=== PATIENT | male | born 1985 | race Caucasian/White ===

== ENCOUNTER 2016-10-20 17:44 | Emergency (ER) | payer MEDICAID ==
[~2016-10-20 17:44] MED LIST: FOL1 PO; KLO0.5 PO; LEXAPRO10 MG PO; PRI20 PO; PROZ20 PO; THI100 PO; XANAX0.5 MG PO
[2016-10-20 19:08] VITALS: BP 122/76
== END 2016-10-20 19:00 | disposition home or self-care (01) ==
LOC: ED 17:44
DX: F32.9 Major depressive disorder, single episode, unspecified (principal); T43.025A Adverse effect of tetracyclic antidepressants, initial encounter; F41.9 Anxiety disorder, unspecified; Y92.89 Other specified places as the place of occurrence of the external cause

== ENCOUNTER 2016-12-18 11:57 | Emergency (ER) | payer MEDICAID | END 2016-12-18 12:28 | disposition left against medical advice (07) | LOC: ED 11:57 | DX: Z53.21 Procedure and treatment not carried out due to patient leaving prior to being seen by health care provider (principal) ==

== ENCOUNTER 2017-08-06 09:54 | Emergency (ER) | payer MEDICAID ==
[~2017-08-06] VITALS: Ht 170.2 cm; Wt 67.6 kg
[2017-08-06 09:54] VITALS: BP 119/91; Ht 170.2 cm; Wt 67.6 kg
== END 2017-08-06 12:27 | disposition left against medical advice (07) ==
LOC: ED 09:54
DX: Z53.21 Procedure and treatment not carried out due to patient leaving prior to being seen by health care provider (principal)

== ENCOUNTER 2017-08-07 15:30 | Emergency (ER) | payer MEDICAID ==
[2017-08-07 17:14] VITALS: BP 122/71
== END 2017-08-07 17:14 | disposition home or self-care (01) ==
LOC: ED 15:30
DX: J11.1 Influenza due to unidentified influenza virus with other respiratory manifestations (principal); J45.901 Unspecified asthma with (acute) exacerbation

== ENCOUNTER 2018-10-05 11:24 | Emergency (ER) | payer OTHER, MEDICAID ==
[~2018-10-05] VITALS: Ht 170.2 cm; Wt 67.8 kg
[2018-10-05 11:45] VITALS: BP 127/76; Ht 170.2 cm; Wt 67.8 kg
[2018-10-07 20:42] LABS: RAPID PLASMA REAGIN Non Reactive (Non Reactive)
== END 2018-10-05 12:49 | disposition home or self-care (01) ==
LOC: ED 11:24
PROVIDERS: Emergency Medicine
DX: R21 Rash and other nonspecific skin eruption (principal); R13.10 Dysphagia, unspecified; F41.9 Anxiety disorder, unspecified; J45.909 Unspecified asthma, uncomplicated; Z88.5 Allergy status to narcotic agent

== ENCOUNTER 2019-08-23 13:02 | Emergency (ER) | payer OTHER, MEDICAID ==
[~2019-08-23] VITALS: Ht 170.2 cm; Wt 70.8 kg
[2019-08-23 13:11] VITALS: Ht 170.2 cm; Wt 70.8 kg
[2019-08-23 14:00] LABS: BASOPHIL % 0.3 % (0-2); PLATELET COUNT 261 x10^3mcL (130-400); RED CELL DISTRIBUTION WIDTH 15.3 % (11.5-14.5)
[2019-08-23 14:17] LABS: AMPHETAMINE QUAL UR POSITIVE (See below)
[2019-08-23 14:25] LABS: ALBUMIN 3.1 g/dL (3.4-5.0); CARBON DIOXIDE 25.7 mmol/L (21-32); CHLORIDE SERUM 105 mmol/L (98-107); CREATININE SERUM 1.2 mg/dL (0.7-1.3); GFR1 > 60 mL/min; GLUCOSE SERUM 93 mg/dL (74-106); POTASSIUM SERUM 4.1 mmol/L (3.5-5.1); SODIUM SERUM 140 mmol/L (136-145); TOTAL PROTEIN, SERUM 7.4 g/dL (6.4-8.2)
[2019-08-23 14:26] LABS: ALKALINE PHOSPHATASE 61 U/L (46-116); ALT/SGPT 60 U/L (16-63); AST/SGOT 54 U/L (15-37); BILIRUBIN TOTAL 0.2 mg/dL (0.20-1.00); CALCIUM 8.6 mg/dL (8.5-10.1)
[2019-08-23 14:33] LABS: FREE THYROXINE INDEX 1.8 ug/dL (1.4-4.5); T4(THYROXINE) 5.7 ug/dL (4.7-13.3)
[2019-08-23 15:19] LABS: T3 TOTAL 1.32 ng/mL
[2019-08-23 15:39] VITALS: BP 124/75
== END 2019-08-23 15:39 | disposition home or self-care (01) ==
LOC: ED 13:02
PROVIDERS: Emergency Medicine
DX: E86.0 Dehydration (principal); R00.2 Palpitations; T38.7X5A Adverse effect of androgens and anabolic congeners, initial encounter; Y92.89 Other specified places as the place of occurrence of the external cause
CPT/HCPCS: 84439; J7030; Q0092

== ENCOUNTER 2019-09-23 23:41 | Emergency (ER) | payer OTHER ==
[~2019-09-23] VITALS: Ht 172.7 cm; Wt 72.1 kg
[2019-09-23 23:56] VITALS: Ht 172.7 cm; Wt 72.1 kg
[2019-09-24 00:55] LABS: BASOPHIL % 0.2 % (0-2); PLATELET COUNT 269 x10^3mcL (130-400); RED CELL DISTRIBUTION WIDTH 14.9 % (11.5-14.5)
[2019-09-24 01:01] LABS: CARBON DIOXIDE 26.9 mmol/L (21-32); CHLORIDE SERUM 102 mmol/L (98-107); CREATININE SERUM 1.4 mg/dL (0.7-1.3); GFR1 > 60 mL/min; GLUCOSE SERUM 121 mg/dL (74-106); SODIUM SERUM 138 mmol/L (136-145)
[2019-09-24 01:07] LABS: ALKALINE PHOSPHATASE 50 U/L (46-116); ALT/SGPT 35 U/L (16-63); AST/SGOT 32 U/L (15-37); BILIRUBIN TOTAL 0.3 mg/dL (0.20-1.00); LIPASE 74 IU/L (73-393); TOTAL PROTEIN, SERUM 7.5 g/dL (6.4-8.2)
[2019-09-24 01:21] LABS: ALBUMIN 2.6 g/dL (3.4-5.0)
[2019-09-24 04:01] LABS: UA SPECIFIC GRAVITY 1.025 (1.005-1.035); microscopic required? YES; urine erythrocyte NEGATIVE (NEGATIVE)
[2019-09-24 04:20] LABS: AMPHETAMINE QUAL UR POSITIVE (See below)
[2019-09-24 04:55] VITALS: BP 101/50
== END 2019-09-24 04:55 | disposition home or self-care (01) ==
LOC: ED 23:41
PROVIDERS: Emergency Medicine
DX: R11.10 Vomiting, unspecified (principal); R19.7 Diarrhea, unspecified; R50.9 Fever, unspecified; J45.909 Unspecified asthma, uncomplicated; Z88.5 Allergy status to narcotic agent
CPT/HCPCS: 87804; G0480; J1885; J2405; J7030; Q0092; Q0162

== ENCOUNTER 2019-10-01 22:59 | Emergency (ER) | payer OTHER ==
[~2019-10-01] VITALS: Ht 170.2 cm; Wt 70.3 kg
[2019-10-01 23:14] VITALS: Ht 170.2 cm; Wt 70.3 kg
[2019-10-02 00:07] LABS: BASOPHIL % 0 % (0-2); PLATELET COUNT 472 x10^3mcL (130-400); RED CELL DISTRIBUTION WIDTH 15.3 % (11.5-14.5)
[2019-10-02 00:30] LABS: CALCIUM 8.6 mg/dL (8.5-10.1); CARBON DIOXIDE 28.3 mmol/L (21-32); CHLORIDE SERUM 103 mmol/L (98-107); CREATININE SERUM 1.3 mg/dL (0.7-1.3); GFR1 > 60 mL/min; GLUCOSE SERUM 127 mg/dL (74-106); POTASSIUM SERUM 4.5 mmol/L (3.5-5.1); SODIUM SERUM 138 mmol/L (136-145)
[2019-10-02 00:36] LABS: ALBUMIN 2.5 g/dL (3.4-5.0); ALKALINE PHOSPHATASE 62 U/L (46-116); ALT/SGPT 56 U/L (16-63); AMYLASE 29 U/L (25-115); AST/SGOT 24 U/L (15-37); BILIRUBIN TOTAL 0.3 mg/dL (0.20-1.00); LIPASE 117 IU/L (73-393); TOTAL PROTEIN, SERUM 8.1 g/dL (6.4-8.2)
[2019-10-02 04:07] VITALS: BP 122/64
== END 2019-10-02 04:07 | disposition home or self-care (01) ==
LOC: ED 22:59
PROVIDERS: Emergency Medicine
DX: R10.32 Left lower quadrant pain (principal); R11.0 Nausea; R19.7 Diarrhea, unspecified; J45.909 Unspecified asthma, uncomplicated; Z88.5 Allergy status to narcotic agent
CPT/HCPCS: 36415; J1885

== ENCOUNTER 2020-09-28 17:42 | Emergency (ER) | payer OTHER ==
[~2020-09-28] VITALS: Ht 170.2 cm; Wt 74.8 kg
[2020-09-28 17:51] VITALS: Ht 170.2 cm; Wt 74.8 kg
[2020-09-28 21:31] LABS: BASOPHIL % 0.7 % (0.2-1.5); PLATELET COUNT 323 x10^3mcL (152-348)
[2020-09-28 21:33] LABS: RED CELL DISTRIBUTION WIDTH 14.9 % (12.1-16.2)
[2020-09-28 21:41] LABS: CALCIUM 8.7 mg/dL (8.5-10.1); CHLORIDE SERUM 106 mmol/L (98-107); CREATININE SERUM 1.4 mg/dL (0.7-1.3); GFR1 > 60 mL/min; GLUCOSE SERUM 119 mg/dL (74-106); POTASSIUM SERUM 3.9 mmol/L (3.5-5.1); SODIUM SERUM 140 mmol/L (136-145)
[2020-09-28 21:45] LABS: ALKALINE PHOSPHATASE 71 U/L (46-116); ALT/SGPT 57 U/L (16-63); AST/SGOT 35 U/L (15-37); BILIRUBIN TOTAL 0.3 mg/dL (0.20-1.00); TOTAL PROTEIN, SERUM 6.8 g/dL (6.4-8.2)
[2020-09-28 21:46] LABS: ALBUMIN 3.3 g/dL (3.4-5.0)
[2020-09-28 21:56] LABS: microscopic required? YES; urine erythrocyte TRACE (NEGATIVE)
[2020-09-28 22:12] LABS: AMPHETAMINE QUAL UR POSITIVE (See below)
[2020-09-29 00:52] VITALS: BP 118/72
== END 2020-09-29 00:52 | disposition home or self-care (01) ==
LOC: ED 17:42
PROVIDERS: Emergency Medicine
DX: R00.2 Palpitations (principal); R06.02 Shortness of breath; R00.0 Tachycardia, unspecified; F15.10 Other stimulant abuse, uncomplicated; Z88.8 Allergy status to other drugs, medicaments and biological substances
CPT/HCPCS: J2060; J7030

== ENCOUNTER 2020-10-08 14:07 | Inpatient (IN) | payer OTHER ==
[~2020-10-08] VITALS: Ht 170.2 cm; Wt 85.8 kg
[2020-10-08 14:49] LABS: BASOPHIL % 0.4 % (0.2-1.5); PLATELET COUNT 294 x10^3mcL (152-348)
[2020-10-08 14:54] LABS: RED CELL DISTRIBUTION WIDTH 15.1 % (12.1-16.2)
[2020-10-08 14:56] LABS: CALCIUM 9.1 mg/dL (8.5-10.1); CHLORIDE SERUM 104 mmol/L (98-107); CREATININE SERUM 1.4 mg/dL (0.7-1.3); GFR1 > 60 mL/min; GLUCOSE SERUM 108 mg/dL (74-106); SODIUM SERUM 137 mmol/L (136-145)
[2020-10-08 19:52] LABS: microscopic required? NO
[2020-10-08 20:00] LABS: urine erythrocyte NEGATIVE (NEGATIVE)
[2020-10-08] MEDS ORDERED: XAN25 PO (20:01)
[2020-10-08] MEDS ORDERED: VYVANSE10 MG PO (20:01)
[2020-10-08] MEDS ORDERED: [UNRECOGNIZED DRUG - OTHER] SL (20:01)
[2020-10-08] MEDS ORDERED: MIRTAZAPINE15 M3 PO (20:02)
[2020-10-08] MEDS ORDERED: SILDENAFIL20 M1 PO (20:02)
[2020-10-08] MEDS ORDERED: ADCIRCA20 MG PO (20:02)
[2020-10-08] MEDS ORDERED: TRIUMEQ1 TAB PO (20:02)
[2020-10-08] MEDS ORDERED: BUSPAR5 MG GT (20:03)
[2020-10-08] MEDS ORDERED: DITROPAN XL5 MG PO (20:03)
[2020-10-08] MEDS ORDERED: BUPROPION HYDR150 M1 PO (20:03)
[2020-10-08 20:09] LABS: T3 TOTAL 1.33 ng/mL
[2020-10-08 20:14] LABS: FREE T4 1.15 ng/dL (0.76-1.46); FREE THYROXINE INDEX 2.2 ug/dL (1.4-4.5); T4(THYROXINE) 6.1 ug/dL (4.7-13.3)
[2020-10-08 20:33] LABS: AMPHETAMINE QUAL UR POSITIVE (See below)
[2020-10-08 20:36] LABS: PHOSPHOROUS 2.1 mg/dL (2.5-4.9)
[2020-10-08 21:35] VITALS: BP 97/79
[2020-10-08 21:55] VITALS: BP 97/79
[2020-10-08 22:03] VITALS: Ht 170.2 cm; Wt 85.8 kg
== END 2020-10-09 00:30 | disposition left against medical advice (07) | DRG 812 ==
LOC: ED 14:07 → DU 19:20
PROVIDERS: Emergency Medicine; ADMIT Internal Medicine; ATTEND Internal Medicine
DX: T43.621A Poisoning by amphetamines, accidental (unintentional), initial encounter (principal); B20 Human immunodeficiency virus [HIV] disease; Z20.822 Contact with and (suspected) exposure to COVID-19; F41.9 Anxiety disorder, unspecified; J45.909 Unspecified asthma, uncomplicated; K52.9 Noninfective gastroenteritis and colitis, unspecified; G47.00 Insomnia, unspecified; N40.0 Benign prostatic hyperplasia without lower urinary tract symptoms; Z85.828 Personal history of other malignant neoplasm of skin; F32.9 Major depressive disorder, single episode, unspecified; Z79.899 Other long term (current) drug therapy; Z79.01 Long term (current) use of anticoagulants; Z79.891 Long term (current) use of opiate analgesic; Z88.5 Allergy status to narcotic agent; Y92.89 Other specified places as the place of occurrence of the external cause; Z83.3 Family history of diabetes mellitus; Z82.49 Family history of ischemic heart disease and other diseases of the circulatory system
CPT/HCPCS: 83880; 84439; G0378; G0480; J2060; J7030